=== PATIENT | male | born 1970 | race African-American/Black ===

== ENCOUNTER 2017-09-18 15:27 | Emergency (ER) | payer OTHER ==
[2017-09-18 15:31] VITALS: BP 140/76; PULSE 100; TEMP 98.1; BMI 22.6
[2017-09-18] MEDS ORDERED: ALBUTEROL SO4 2.5/IPRATROPIUM 0.5 INH SOL 3 ML VIAL.NEB. NEB ONE ×2 (16:19→16:22)
[2017-09-18] MEDS ORDERED: IBUPROFEN 600 MG TABLET (FP) PO ONE ×2 (16:19→16:22)
--- NOTE | 2017-09-18 16:19 | PDOC ---
History of Present Illness - General Chief Complaint: Cold Symptoms Stated Complaint: COUGH Time Seen by Provider: 09/18/17 15:53 History Source: Patient Exam Limitations: No Limitations - History of Present Illness Initial Comments: 09/18/17 17:11 Pt. is a 47 y/o male with no PMH who presents to the ED c/o shortness of breath and wheezing. Pt. states he was seen at Urgent Care on Sunday and diagnosed with bronchitis. He was given steroids, albuterol inhalers, and a Z-pack. He has been taking his medication as prescribed with the exception of the inhaler as he does not like the way it tastes. He states that he is still wheezing. Admits to cough Denies fevers, chills, rhinorrhea, nausea, vomiting, diarrhea, chest pain, palpitations. Past History - Travel Traveled outside of the country in the last 30 days: No Close contact w/someone who was outside of country & ill: No - Past Medical History Allergies/Adverse Reactions: Allergies Allergy/AdvReac Type Severity Reaction Status Date / Time No Known Allergies Allergy Verified 09/18/17 15:31 Home Medications: Ambulatory Orders Albuterol 0.083% Nebulizer Noni [Ventolin 0.083% Nebulizer Soln -] 1 neb NEB Q4H #20 vial 09/18/17 Azithromycin 500 mg PO ONCE 09/18/17 Prednisone 10 mg PO ASDIR 09/18/17 Other medical history: denies - Suicide/Smoking/Psychosocial Hx Smoking History: Never smoked Information on smoking cessation initiated: No Hx Alcohol Use: No Drug/Substance Use Hx: Yes (marijuana) Substance Use Type: Marijuana Review of Systems - Review of Systems Able to Perform ROS?: Yes Is the patient limited Estonian proficient: No Constitutional: No: Chills, Fever, Weakness HEENTM: No: Ear Pain, Nose Pain, Difficulty Swallowing Respiratory: Yes: Cough, Wheezing. No: Shortness of Breath, SOB with Exertion, Productive cough Cardiac (ROS): No: Chest Pain, Lightheadedness ABD/GI: No: Diarrhea, Nausea, Vomiting Neurological: No: Headache, Numbness, Weakness, Dizziness *Physical Exam - Vital Signs Last Vital Signs Temp Pulse Resp BP Pulse Ox 98.1 F 100 H 18 140/76 98 09/18/17 15:29 09/18/17 15:29 09/18/17 15:29 09/18/17 15:29 09/18/17 15:29 - Physical Exam General Appearance: Yes: Nourished, Appropriately Dressed, Apparent Distress ( sitting on exam bed, AAOx3) HEENT: positive: EOMI, CHANTELL, Normal ENT Inspection, Normal Voice, Symmetrical, TMs Normal, Pharynx Normal Neck: positive: Trachea midline, Normal Thyroid, Supple. negative: Tender, Rigid Respiratory/Chest: positive: Decreased Breath Sounds, Wheezing (B/L with fair aeration to the bases). negative: Chest Tender, Lungs Clear, Respiratory Distress, Accessory Muscle Use, Rales, Rhonchi, Stridor Cardiovascular: positive: Regular Rate, S1, S2 (present), Tachycardia. 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 with no PMH current dx of bronchitis by an urgent care on steriods and azithromycin. O2 sat 98 on RA 1. Duoneb x2 2. CXR 3. Re-eval 09/18/17 18:23 Lung sounds still with wheezing but with better aeration to the bases. Pt. reports feeling better and requesting nebulizer solution to use at home. Will d/ c home with nebulizer solution and f/u. *DC/Admit/Observation/Transfer Diagnosis at time of Disposition: Bronchitis - Discharge Dispostion Disposition: HOME Condition at time of disposition: Good - Prescriptions Prescriptions: Albuterol 0.083% Nebulizer Noni [Ventolin 0.083% Nebulizer Soln -] 1 neb NEB Q4H #20 vial - Referrals Referrals: Nick Canales MD [Primary Care Provider] - 2 Days - Patient Instructions Printed Discharge Instructions: DI for Acute Bronchitis Additional Instructions: Continue your antibiotics and prednisone as prescribed by urgent care. Your x- ray was negative for pneumonia. Use the nebulizer treatment every four hours. Return to the ED if you develop fevers, have difficulty breathing, shortness of breath, or any other changes in your symptoms. - Post Discharge Activity Forms/Work/School Notes: Back to Work
== END 2017-09-18 17:37 | disposition home or self-care (01) ==
LOC: JERFT 15:27
PROC: 3E0F7GC Introduction of Other Therapeutic Substance into Respiratory Tract, Via Natural or Artificial Opening (ICD-10-PCS; principal; 2017-09-18)
DX: J40 Bronchitis, not specified as acute or chronic (principal)
CPT/HCPCS: 71020-TC; 99281-25

== ENCOUNTER 2018-09-04 15:28 | Emergency (ER) | payer OTHER ==
[2018-09-04 15:31] VITALS: BP 131/89; PULSE 72; TEMP 98.5; BMI 22.6
--- NOTE | 2018-09-04 15:32 | PDOC ---
Rapid Medical Evaluation Time Seen by Provider: 09/04/18 15:29 Medical Evaluation: Allergies Allergy/AdvReac Type Severity Reaction Status Date / Time No Known Allergies Allergy Verified 09/18/17 15:31 09/04/18 15:29 The patient complains of: lac to rt wrist, UTD on tdap, no hx of diabetes On brief exam: vss, FROM of fingers, no sensory changes distal of injury, 2 cm linear laceration to palmar aspect of rt wrist The patient ordered for: none The patient to proceed to the ED Discharge Disposition - Diagnosis Laceration of wrist - Referrals - Patient Instructions - Post Discharge Activity
--- NOTE | 2018-09-04 17:00 | PDOC ---
History of Present Illness - General Chief Complaint: Laceration Stated Complaint: LACERATION Time Seen by Provider: 09/04/18 15:29 History Source: Patient Exam Limitations: No Limitations - History of Present Illness Initial Comments: 09/04/18 17:03 48 yr male with c/o laceration to the right inner wrist today. cut on metal or glass in the garbage at work. Severity: Yes: mild Past History - Past Medical History Allergies/Adverse Reactions: Allergies Allergy/AdvReac Type Severity Reaction Status Date / Time No Known Allergies Allergy Verified 09/04/18 15:32 Home Medications: Ambulatory Orders NK [No Known Home Medication] 09/04/18 COPD: No - Suicide/Smoking/Psychosocial Hx Smoking History: Never smoked Hx Alcohol Use: No Drug/Substance Use Hx: Yes (marijuana) Substance Use Type: Marijuana Review of Systems - Review of Systems Able to Perform ROS?: Yes Is the patient limited [place] Islander proficient: No Constitutional: No: Symptoms Reported HEENTM: No: Symptoms Reported Respiratory: No: Symptoms reported Cardiac (ROS): No: Symptoms Reported Integumentary: Yes: Symptoms Reported *Physical Exam - Vital Signs Last Vital Signs Temp Pulse Resp BP Pulse Ox 98.5 F 72 18 131/89 98 09/04/18 15:28 09/04/18 15:28 09/04/18 15:28 09/04/18 15:28 09/04/18 15:28 - Physical Exam General Appearance: Yes: Nourished, Appropriately Dressed HEENT: positive: EOMI, CHANTELL Extremity: positive: Normal Capillary Refill, Normal Inspection, Normal Range of Motion Integumentary: positive: Other (right inner wirst with 2cm linear lac no active bleeding ) Neurologic: positive: Fully Oriented, Alert, Normal Mood/Affect, Normal Response , Motor Strength 5/5, Respond to painful stimul. negative: Sensory Deficit Procedures - Laceration/Wound Repair Right Wrist Wound Length: to 2.5 cm Wound Explored: clean Wound's Depth, Shape: linear Irrigated w/ Saline: Yes Betadine Prep: Yes Wound Repaired With: Dermabond Medical Decision Making - Medical Decision Making 09/04/18 17:05 cc: wound laceration right inner wrist cleaned with betadine dermabond glue placed wrapped with cling gauze *DC/Admit/Observation/Transfer Diagnosis at time of Disposition: Laceration of wrist Qualifiers: Encounter type: initial encounter Laterality: right Qualified Code(s): S61.511A - Laceration without foreign body of right wrist, initial encounter - Discharge Dispostion Disposition: HOME Condition at time of disposition: Good - Referrals Referrals: Cameron Brewster MD [Staff Physician] - - Patient Instructions Additional Instructions: keep dry for 48hrs remove the dressing in 2 days do not pick at the glue it will peel off in about 5-7 days keep covered with bandaid follow with the hand surgeon for any worsening pain, numbness, tingling or any other complaints - Post Discharge Activity Forms/Work/School Notes: Back to Work
== END 2018-09-04 17:11 | disposition home or self-care (01) ==
LOC: JERFT 15:28
PROC: 0HQDXZZ Repair Right Lower Arm Skin, External Approach (ICD-10-PCS; principal; 2018-09-04)
DX: S61.511A Laceration without foreign body of right wrist, initial encounter (principal); W25.XXXA Contact with sharp glass, initial encounter; Y93.89 Activity, other specified; Y92.410 Unspecified street and highway as the place of occurrence of the external cause; Y99.0 Civilian activity done for income or pay
CPT/HCPCS: 99282-25

== ENCOUNTER 2025-04-22 03:04 | Emergency (ER) | payer OTHER ==
[2025-04-22 03:12] VITALS: BMI 20.9
[2025-04-22] MEDS ORDERED: ACETAMINOPHEN INJECTION 100 ML ONE (03:57)
[2025-04-22] MEDS: SODIUM CHLORIDE 0.9% 1000 ML INFUS.BAG IV ONE (04:02)
[2025-04-22] MEDS: ACETAMINOPHEN 1000 MG/100 ML BAG IVPB ONE (04:02)
[2025-04-22 04:26] LABS: ABSOLUTE IMMATURE GRANULOCYTES 0.01 x10^3/uL (0.0-0.031); EOSINOPHIL % 6.2 % (0.8-7.0); EOSINOPHILS # 0.26 x10^3/uL (0.04-0.54); HEMATOCRIT 43.8 % (40.1-51.0); HEMOGLOBIN 14.1 g/dL (13.7-17.5); MCHC 32.2 g/dl (32.3-36.5); MEAN CELL VOLUME 89.9 fl (79.0-92.2); MEAN PLT VOLUME 10.4 fl (9.4-12.4); MONOCYTE # 0.14 x10^3/uL (0.30-0.82); MONOCYTE % 3.3 % (5.3-12.2); PLATELET COUNT 216 x10^3/uL (163-337)
[2025-04-22 04:47] LABS: POTASSIUM 4.9 mmol/L (3.5-5.1)
[2025-04-22 04:49] LABS: ALBUMIN 3.5 g/dl (3.4-5.0); BLOOD UREA NITROGEN 14.7 mg/dL (7-18); CALCIUM 9.4 mg/dL (8.5-10.1)
[2025-04-22 04:53] LABS: CREATININE 1.5 mg/dL (0.55-1.3)
[2025-04-22 05:29] VITALS: BP 101/59; PULSE 80; RESP 16; TEMP 99.1
[2025-04-22 05:43] LABS: HCV DIAGNOSTIC IN-HOUSE W/RFLX NON-REACTIVE (NONREACTIVE); HIV INTERPRETATION NEGATIVE (NEGATIVE)
== END 2025-04-22 06:27 | disposition home or self-care (01) ==
LOC: JER 03:04
PROC: 3E033NZ Introduction of Analgesics, Hypnotics, Sedatives into Peripheral Vein, Percutaneous Approach (ICD-10-PCS; principal; 2025-04-22)
DX: R50.9 Fever, unspecified (principal); M79.10 Myalgia, unspecified site; R53.83 Other fatigue; B34.9 Viral infection, unspecified; R63.8 Other symptoms and signs concerning food and fluid intake
CPT/HCPCS: 0241U-QW; 36415; 71046-TC-FY; 80053; 85025; 86803; 87389; 99284-25; J0131